=== PATIENT | male | born 1995 | race Caucasian/White ===

== ENCOUNTER 2024-10-26 01:28 | Emergency (ER) | payer MEDICAID, SELFPAY ==
[2024-10-26 01:29] VITALS: PULSE 84; RESP 26; O2SAT 99
[2024-10-26 01:36] VITALS: BP 111/55; PULSE 91; RESP 19; TEMP 37.1; O2SAT 99; BMI 25.9
--- NOTE | 2024-10-26 01:50 | XR_ITS ---
Examination: PA lateral chest 2 views Technique: Upright PA lateral chest 2 views Exam date and time: October 26, 2024 0153 hrs. Comparison December 18, 2021 Indications: Choking sensation today. Findings: Retrocardiac gastric hernia Normal heart size No aspiration pneumonia Impression: No aspiration pneumonia
--- NOTE | 2024-10-26 01:51 | PD.EDRME ---
Rapid Medical Screening Exam RME Arrival date/time: 10/26/24 01:28 28-year-old male daily marijuana smoker presents emergency department choking sensation and vomiting. Chief Complaint: Nausea/Vomiting/Diarrhea Time Seen by Provider: 10/26/24 01:44 Vital signs: Vital Signs Temperature 98.8 F 10/26/24 01:36 Pulse Rate 91 10/26/24 01:36 Respiratory Rate 19 10/26/24 01:36 Blood Pressure 111/55 L 10/26/24 01:36 Pulse Oximetry (%) 99 10/26/24 01:36 Oxygen Delivery Method Room Air 10/26/24 01:36 Vital signs reviewed by provider: Yes
[2024-10-26] MEDS: METOCLOPRAMIDE INJ 5 MG/ML VIAL 2 ML 10 MG IM (02:21)
[2024-10-26 02:24] LABS: Basophils # (Auto) 0.1 Thou/mm3 (0.0-0.2); Basophils % (Auto) 1 % (0-2.5); Eosinophils # (Auto) 0.4 Thou/mm3 (0.0-0.5); Eosinophils % (Auto) 4 % (0-10); Hemoglobin 15.4 g/dL (13.5-16.0); Immature Granulocytes % (Auto) 0 % (0-0); Immature Granulocytes Auto 0.02 Thou/mm3 (0.00-0.00); Lymphocytes # (Auto) 4.9 Thou/mm3 (1.0-4.8); Lymphocytes % (Auto) 49 % (10-50); Mean Corpuscular HGB Conc 34.2 g/dl (31.0-37.0); Mean Corpuscular Hemoglobin 28.4 pg (25.0-35.0); Mean Corpuscular Volume 83 fL (80-100); Monocytes # (Auto) 0.9 Thou/mm3 (0.0-0.8); Monocytes % (Auto) 9 % (0-12); Neutrophils # (Auto) 3.7 Thou/mm3 (1.8-7.7); Neutrophils % (Auto) 37 % (37-80); Platelet Count 250 Thou/mm3 (140-440); RDW Standard Deviation 37.2 fL (35.1-43.9); Red Blood Count 5.42 Miln/mm3 (4.50-5.90); White Blood Count 9.9 Thou/mm3 (3.8-10.6)
[2024-10-26 02:25] LABS: Nucleated Red Blood Cell % 0 /100 WBC (0)
[2024-10-26 02:44] LABS: Alanine Aminotransferase 22 U/L (10-49); Albumin, Serum 4.9 gm/dL (3.5-5.0); Albumin/Globulin Ratio 1.8 (1.2-2.2); Alkaline Phosphatase 87 U/L (46-116); Anion Gap 12 (7-16); Aspartate Amino Transferase 23 U/L (0-34); BUN/Creatinine Ratio 14 Ratio (12-20); Bilirubin,Total 0.4 mg/dL (0.3-1.2); Blood Urea Nitrogen 13 mg/dL (9-23); Calcium 10.6 mg/dL (8.3-10.6); Calcium (Corrected) 10.6 mg/dL (8.5-10.1); Carbon Dioxide 24.2 mMol/L (20.0-31.0); Chloride 104 mMol/L (98-107); Creatinine (Component) 0.9 mg/dL (0.6-1.3); Estimated Creatinine Clearance 115.3 mL/min (>60); Globulin 2.7 gm/dL (2.3-3.5); Glucose 112 mg/dL (74-106); Lipase 32 U/L (12-53); Osmolality,Calculated 280 (275-295); Potassium 3.4 mMol/L (3.4-5.1); Sodium 140 mMol/L (136-145); Total Protein 7.6 gm/dL (5.7-8.2); eGFR > 60 See Note
[2024-10-26 03:22] LABS: Collection Type, Urine Clean Catch
[2024-10-26 03:25] LABS: Bilirubin,Urine Negative (Negative); Blood,Urine Negative (Negative); Clarity,Urine Clear (Clear/Hazy); Color,Urine Colorless (Lt Yel-Yel); Culture Indicated,Urine Not Indicated; Glucose, Urine Negative (Negative); Ketones,Urine Negative (Negative); Leukocyte Esterase,Urine Negative (Negative); Nitrite,Urine Negative (Negative); Protein,Urine Negative (Neg - Trace); RBC,Urine < 1 /hpf (0-3); Specific Gravity,Urine 1.008 (1.001-1.035); Squamous Epithelial Cell,Urine < 1 /hpf (0-5); Urobilinogen,Urine Negative mg/dL (0.0-1.0); WBC,Urine 1 /hpf (0-5)
[2024-10-26 03:34] LABS: Amphetamine/Methamp Scrn,U Negative (Negative); Barbiturate Screen,Urine Negative (Negative); Benzodiazepines Screen,Urine Negative (Negative); Benzoylecgonine Screen, Ur Negative (Negative); Fentanyl Screen,Urine Negative (Negative); Opiate Screen,Urine Negative (Negative); THC Screen,Urine Positive (Negative)
--- NOTE | 2024-10-26 06:22 | PC.NURSE ---
NO ANSWER AT ER LOBBY OR OUTSIDE ER TO BE PUT TO ROOM.
== END 2024-10-26 06:28 | disposition left against medical advice (07) ==
LOC: SERX 02:04
PROVIDERS: Emergency Provider Emergency Medicine
DX: R11.10 Vomiting, unspecified (principal); Z53.29 Procedure and treatment not carried out because of patient's decision for other reasons
CPT/HCPCS: 36415; 71046; 80053; 80307; 81001; 83690; 85025; 96372; 99281; J2765